=== PATIENT | male | born 1990 | race Caucasian/White ===

== ENCOUNTER → 2019-06-27 | Outpatient (CLI) | payer OTHER ==
[~2019-06-27] MED LIST: 0.9 % SODIUM CHLORIDE 10 ML DISP.SYRIN. ID ONE; GADOTERATE 5 MMOL/10ML VIAL. INT ART ONE; IOHEXOL 300 MG/ML 50 ML VIAL. INT ART ONE; LIDOCAINE 1% Multi-Dose 20 ML VIAL. ID ONE
--- NOTE | 2019-06-27 16:04 | KCIC ---
MR of the right shoulder HISTORY: Pain after a fall for several weeks. Right biceps surgery June 2018. Decreased range of motion. [place] a pop one month ago. TECHNIQUE: Routine multiplanar sequences are obtained. FINDINGS: The acromioclavicular joint is intact. No evidence of rotator cuff tear. No significant subdeltoid bursal fluid or contrast. Glenohumeral joint articular cartilage is intact. No evidence of labral tear or detachment. Blunting of the superior labrum. Biceps tendon not visualized. No acute fracture. No aggressive bone destruction. Surgical screw identifiedcd within the anterior proximal humeral shaft. IMPRESSION: 1. Nonvisualized biceps tendon, presumably related to surgical repair. 2. Blunting of the superior labrum, also presumably postsurgical, versus chronic tearing or degeneration. 3. No evidence of rotator cuff tear. Electronically signed by: Iker Jackson MD (06/27/2019 4:02 PM) [id number]
--- NOTE | 2019-06-27 16:05 | KCIC ---
PROCEDURE: Right shoulder injection using fluoroscopic guidance, prior to MR. HISTORY: Shoulder pain. TECHNIQUE: The procedure was explained to the patient as were potential risks, including among others infection, bleeding or allergic reaction. All questions were answered. Informed written and verbal consent was obtained. The shoulder was prepped and draped in the usual sterile manner. Following administration of local anesthetic, a 22-gauge needle was advanced into the anterior shoulder. Following negative aspiration, 12 cc of a solution of 5cc Omnipaque-300 contrast, 5 cc 1% lidocaine, 10 cc normal saline, and 0.1 cc gadolinium was injected without difficulty. The needle was removed. There was good hemostasis at the injection site. The patient left in stable condition without immediate complication. A single spot image is obtained. FLUOROSCOPY TIME:?16 seconds Electronically signed by: Iker Jackson MD (06/27/2019 4:02 PM) [id number]
== END | disposition home or self-care (01) ==
LOC: KCIC 13:45
PROVIDERS: ATTEND Nurse Practitioner Family
DX: M25.511 Pain in right shoulder (principal); I10 Essential (primary) hypertension; Z87.442 Personal history of urinary calculi; Z79.899 Other long term (current) drug therapy; Z98.890 Other specified postprocedural states
CPT/HCPCS: 23350; 73040; 73222; A9575; J3490; Q9967